=== PATIENT | male | born 1975 | race Caucasian/White ===

== ENCOUNTER 2021-03-03 04:19 | Emergency (ER) | payer OTHER ==
[~2021-03-03] VITALS: Ht 167.6 cm; Wt 77.0 kg
[2021-03-03 04:23] VITALS: BP 137/96
== END 2021-03-03 05:41 | disposition left against medical advice (07) ==
LOC: ER 04:47
DX: Z53.21 Procedure and treatment not carried out due to patient leaving prior to being seen by health care provider (principal)
CPT/HCPCS: 93005